=== PATIENT | female | born 1985 | race Caucasian/White ===

== ENCOUNTER 2021-12-02 20:36 | Emergency (ER) | payer OTHER ==
[~2021-12-02] VITALS: Ht 157.5 cm; Wt 56.8 kg
[2021-12-02 23:56] VITALS: BP 137/88
[2021-12-02] MEDS ORDERED: PENI500T2 PO (23:56)
[2021-12-02] MEDS ORDERED: HYDR-4723 PO (23:56)
[2021-12-03] MEDS ORDERED: PENICILLIN V POTASSIUM 500 MG TABLET PO ONE
[2021-12-03] MEDS ORDERED: HYDROCODONE/ACETAMINOPHEN 5-325 MG TABLET PO ONE
== END 2021-12-03 00:28 | disposition home or self-care (01) ==
LOC: EMS 20:38
DX: K02.9 Dental caries, unspecified (principal); K08.89 Other specified disorders of teeth and supporting structures; F10.20 Alcohol dependence, uncomplicated; F17.210 Nicotine dependence, cigarettes, uncomplicated
CPT/HCPCS: 99283